=== PATIENT | male | born 1980 | race American Indian/Alaskan Native ===

== ENCOUNTER 2017-01-15 13:00 | Emergency (ER) | payer OTHER ==
[2017-01-15 13:21] VITALS: BP 124/81; PULSE 69; RESP 18; TEMP 98.2; O2SAT 99
--- NOTE | 2017-01-15 14:00 | C.PDOC ---
History Of Present Illness Pt had URI symptoms 1 week ago which resolved. 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 He is asymptomatic now. Time Seen by Provider: 01/15/17 13:29 History Per: Patient Onset/Duration Of Symptoms: Days (3) Current Symptoms Are (Timing): Gone Possible Causative Factor(s): Other (Working in a freezer) Fall Associated With With Symptoms: No Severity: Mild Additional History Per: Prior Records - Symptoms Of CVA Recent Head Trauma: No Past Medical History Reviewed: Historical Data, Nursing Documentation, Vital Signs Vital Signs: Last Vital Signs Temp 98.2 F 01/15/17 13:16 Pulse 69 01/15/17 13:16 Resp 18 01/15/17 13:16 BP 124/81 01/15/17 13:16 Pulse Ox 99 01/15/17 13:16 - Medical History PMH: No Chronic Diseases Family History: States: Unknown Family Hx - Social History Hx Tobacco Use: Yes (1 pack daily) Hx Alcohol Use: No Hx Substance Use: No - Immunization History Hx Tetanus Toxoid Vaccination: No Hx Influenza Vaccination: No Hx Pneumococcal Vaccination: No Review Of Systems Except As Marked, All Systems Reviewed And Found Negative. Constitutional: Positive for: Sweats (while at work only), Malaise (resolved). Negative for: Fever, Weakness Cardiovascular: Negative for: Chest Pain Respiratory: Negative for: Cough, Shortness of Breath Gastrointestinal: Negative for: Nausea, Vomiting, Abdominal Pain, Diarrhea Genitourinary: Negative for: Dysuria Musculoskeletal: Negative for: Neck Pain Skin: Negative for: Rash Neurological: Negative for: Weakness, Numbness, Seizures, Altered Mental Status , Headache Physical Exam - Physical Exam Appears: Non-toxic, No Acute Distress Skin: Normal Color, Warm, Dry, No Rash Head: Atraumatic, Normacephalic Eye(s): bilateral: Normal Inspection, PERRL, EOMI Neck: Normal ROM, Supple Cardiovascular: Rhythm Regular Respiratory: Normal Breath Sounds, No Accessory Muscle Use Gastrointestinal/Abdominal: Soft, No Tenderness Back: No CVA Tenderness Extremity: Normal ROM, No Pedal Edema, No Calf Tenderness Neurological/Psych: Oriented x3, Normal Speech, Normal Cognition, Normal Motor, Normal Sensation ED Course And Treatment O2 Sat by Pulse Oximetry: 99 Pulse Ox Interpretation: Normal Disposition Counseled Patient/Family Regarding: Studies Performed, Diagnosis, Need For Followup, Smoking Cessation - Disposition Referrals: Shahana De Oliveira MD [Medical Doctor] - Disposition: HOME/ ROUTINE Disposition Time: 14:04 Condition: STABLE Additional Instructions: Follow up with your primary doctor for further evaluation and treatment. Return to the ER if you develop shortness of breath, chest pain, fever, worsening of symptoms or if you have any other concerns. Forms: General Discharge Instructions - Clinical Impression Clinical Impression: Hot flashes
== END 2017-01-15 14:10 | disposition home or self-care (01) ==
LOC: C.ER 13:00
DX: R23.2 Flushing (principal)

== ENCOUNTER 2017-02-09 12:13 | Emergency (ER) | payer OTHER ==
[2017-02-09 12:22] VITALS: BMI 35.5
[2017-02-09 12:24] VITALS: RESP 18; TEMP 98.2; O2SAT 98
--- NOTE | 2017-02-09 13:04 | C.PDOC ---
History Of Present Illness 36 y/o male presents to the ED with complains of chest pain since yesterday. Pain is midsternal, sharp, worse with inhalation. Denies fever, chills, SOB, vomiting or any other complaints. Time Seen by Provider: 02/09/17 12:33 Chief Complaint (Nursing): Chest Pain History Per: Patient History/Exam Limitations: no limitations Onset/Duration Of Symptoms: Hrs Current Symptoms Are (Timing): Still Present Severity: Moderate Quality: Sharp Exacerbating Factors: Other (inhalation) Alleviating Factors: None Recent travel outside of the [place]: No Past Medical History Reviewed: Historical Data, Nursing Documentation, Vital Signs Vital Signs: Last Vital Signs Temp 98.2 F 02/09/17 12:22 Pulse 72 02/09/17 12:22 Resp 18 02/09/17 12:22 BP 135/74 02/09/17 12:22 Pulse Ox 98 02/09/17 13:06 Family History: States: Unknown Family Hx - Social History Hx Tobacco Use: Yes (1 pack daily) Hx Alcohol Use: No Hx Substance Use: No - Immunization History Hx Tetanus Toxoid Vaccination: No Hx Influenza Vaccination: No Hx Pneumococcal Vaccination: No Review Of Systems Except As Marked, All Systems Reviewed And Found Negative. Constitutional: Negative for: Fever, Chills Cardiovascular: Positive for: Chest Pain Respiratory: Negative for: Shortness of Breath Gastrointestinal: Negative for: Vomiting Physical Exam - Physical Exam Appears: Non-toxic, No Acute Distress, Other (obese) Skin: Warm, Dry, No Rash Head: Atraumatic, Normacephalic Neck: Normal, Normal ROM, Supple Chest: Symmetrical, No Tenderness Cardiovascular: Rhythm Regular, No Murmur Respiratory: Normal Breath Sounds, No Rales, No Rhonchi, No Wheezing Gastrointestinal/Abdominal: Normal Exam, Soft, No Tenderness Extremity: Normal ROM Extremity: Bilateral: Atraumatic Neurological/Psych: Oriented x3, Normal Speech ED Course And Treatment - Laboratory Results Result Diagrams: 02/09/17 13:13 02/09/17 13:13 ECG: Interpreted By Me, Viewed By Me ECG Rhythm: Sinus Rhythm Interpretation Of ECG: No ST/T wave changes Rate From EC (BPM) O2 Sat by Pulse Oximetry: 98 (room air) Pulse Ox Interpretation: Normal Medical Decision Making Medical Decision Making: atypcial cp - r/o acs, pe, pna, pneumo Plan: EKG, labs, CXR, IV fluids 200: pt reassessed. sleeping comfortably in nad. cxr neg. dimer, trop neg. atypical pain, x 1 day, low heart, advise outpt f/u return precautions Disposition - Disposition Referrals: Roni Madden MD [Staff Provider] - Disposition: HOME/ ROUTINE Disposition Time: 13:51 Condition: STABLE Additional Instructions: please follow up with your doctor. return to er with worsening symptoms or concerns. Instructions: Chest Pain (ED) - Clinical Impression Clinical Impression: Chest pain - Scribe Statement The provider has reviewed the documentation as recorded by the George Duke Provider Attestation: All medical record entries made by the Lioibe were at my direction and personally dictated by me. I have reviewed the chart and agree that the record accurately reflects my personal performance of the history, physical exam, medical decision making, and the department course for this patient. I have also personally directed, reviewed, and agree with the discharge instructions and disposition.
[2017-02-09 13:26] LABS: BASO % 0.6 % (0.0-2.0); EOS # 0.1 K/uL (0.0-0.7); EOS % 1.1 % (0.0-4.0); HEMATOCRIT 41.6 % (35.0-51.0); LYMPH # 1.8 K/uL (1.0-4.3); LYMPH % 32.8 % (20.0-40.0); MEAN CORPUSCULAR HGB CONC 34.4 g/dL (33.0-37.0); MEAN PLATELET VOLUME 8.1 fL (7.2-11.7); MONO # 0.6 K/uL (0.0-0.8); MONO % 10.1 % (0.0-10.0); RED CELL DISTRIBUTION WIDTH 12.1 % (11.5-14.5); WHITE BLOOD COUNT 5.6 K/uL (4.8-10.8)
[2017-02-09 13:35] LABS: CHLORIDE 102 mmol/L (98-107); POTASSIUM 3.8 mmol/L (3.6-5.2); SODIUM 138 mmol/L (132-148)
[2017-02-09 13:37] LABS: GFR AFRICAN-AMERICAN > 60
[2017-02-09 13:38] LABS: ALB/GLOB RATIO 1.2 (1.0-2.1); ALKALINE PHOSPHATASE 69 U/L (38-126); ALT/SGPT 35 U/L (21-72); AST/SGOT 21 U/L (17-59); BILIRUBIN,TOTAL 1.2 mg/dL (0.2-1.3); BLOOD UREA NITROGEN 13 mg/dL (9-20); CALCIUM 8.7 mg/dl (8.6-10.4); CARBON DIOXIDE 27 mmol/L (22-30); GLUCOSE,RANDOM 92 mg/dL (75-110); TOTAL PROTEIN 7.7 g/dL (6.3-8.3)
--- NOTE | 2017-02-09 13:44 | RAD ---
PROCEDURE: CHEST RADIOGRAPH, 1 VIEW HISTORY: chest pain COMPARISON: None available. FINDINGS: LUNGS: Clear. PLEURA: No pneumothorax or pleural fluid seen. CARDIOVASCULAR: Normal. OSSEOUS STRUCTURES: No significant abnormalities. VISUALIZED UPPER ABDOMEN: Normal. OTHER FINDINGS: None. IMPRESSION: No active disease.
[2017-02-09 13:48] LABS: INR 1.2; PARTIAL THROMBOPLASTIN TIME 29 SECONDS (21-34)
[2017-02-09 14:11] VITALS: BP 118/69; PULSE 66
--- NOTE | 2017-02-10 10:20 | CARD ---
APPROVED REPORT EKG Measurement Heart [id number] <Conclusion> Normal sinus rhythm Normal ECG
== END 2017-02-09 14:20 | disposition home or self-care (01) ==
LOC: C.ER 12:13
DX: R07.89 Other chest pain (principal); Z72.0 Tobacco use

== ENCOUNTER 2018-11-22 18:45 | Emergency (ER) | payer SELFPAY ==
[2018-11-22 18:45] VITALS: BMI 35.5
[2018-11-22 18:52] VITALS: BP 121/84; PULSE 90; RESP 16; TEMP 98.1; O2SAT 98
[2018-11-22] MEDS ORDERED: Lidocaine Hydrochloride 5 ML INJ ONE (19:12)
--- NOTE | 2018-11-22 19:28 | C.PDOC ---
History Of Present Illness Patient is a 37 year old male who presents to the ED c/o painful lump under left arm for the past 2 days. He states that he ran the are under hot water for about 20 minutes, with no relief. Patient states that he has had similar symptoms in the past that needed to be cut. He denies any fever associated with his symptoms. Time Seen by Provider: 11/22/18 19:03 Chief Complaint (Nursing): Abnormal Skin Integrity History Per: Patient History/Exam Limitations: no limitations Onset/Duration Of Symptoms: Days (2 days) Current Symptoms Are (Timing): Still Present Quality Of Symptoms: Painful Recent travel outside of the [place]: No Additional History Per: Patient Past Medical History Reviewed: Historical Data, Nursing Documentation, Vital Signs Vital Signs: Last Vital Signs Temp 98.1 F 11/22/18 18:50 Pulse 90 11/22/18 18:50 Resp 16 11/22/18 18:50 BP 121/84 11/22/18 18:50 Pulse Ox 98 11/22/18 18:50 - Medical History PMH: No Chronic Diseases Surgical History: No Surg Hx Family History: States: Unknown Family Hx - Social History Hx Tobacco Use: Yes (1 pack daily) Hx Alcohol Use: No Hx Substance Use: No - Immunization History Hx Tetanus Toxoid Vaccination: No Hx Influenza Vaccination: No Hx Pneumococcal Vaccination: No Review Of Systems Constitutional: Negative for: Fever, Chills, Weakness Cardiovascular: Negative for: Chest Pain Respiratory: Negative for: Cough Gastrointestinal: Negative for: Nausea, Vomiting Skin: Positive for: Other (painful lump under ledft arm ). Negative for: Rash Neurological: Negative for: Weakness, Numbness, Dizziness Physical Exam - Physical Exam Appears: Well, Non-toxic, No Acute Distress Skin: No Rash, Other (large fluctuant mass in left axilla with no surroundoing induration,erythema, or drainage ) Head: Atraumatic, Normacephalic Eye(s): bilateral: Normal Inspection, PERRL, EOMI Neck: Normal ROM Lymphatic: No Adenopathy, Axilla Node Tenderness Chest: Symmetrical, No Tenderness Extremity: Normal ROM, No Tenderness Extremity: Bilateral: Atraumatic, Bony Point Tenderness, Joint Effusion Pulses: Left Radial: Normal, Right Radial: Normal Neurological/Psych: Oriented x3, Normal Cranial Nerves ED Course And Treatment O2 Sat by Pulse Oximetry: 98 (on RA) Pulse Ox Interpretation: Normal - Incision & Drainage Of Abscess Anesthesia: Lidocaine 1% (5cc) Procedure: Incised W/Scalpel Blade#: (11), Drained Pus (20cc of prurulent drainage ), Packed W/Gauze (iodoform gauze and clean dressing ) Medical Decision Making Medical Decision Making: Plan: I&D performed patient to have wound check in 1 day Disposition Counseled Patient/Family Regarding: Diagnosis, Need For Followup, Rx Given - Disposition Disposition: HOME/ ROUTINE Disposition Time: 19:26 Condition: STABLE Additional Instructions: Return tomorrow evening for packing removal and wound check. 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 - Scribe Statement The provider has reviewed the documentation as recorded by the George Flaherty All medical record entries made by the Lioibivis were at my direction and personally dictated by me. I have reviewed the chart and agree that the record accurately reflects my personal performance of the history, physical exam, medical decision making, and the department course for this patient. I have also personally directed, reviewed, and agree with the discharge instructions and disposition.
== END 2018-11-22 19:31 | disposition home or self-care (01) ==
LOC: C.ER 18:45
DX: L02.412 Cutaneous abscess of left axilla (principal)